=== PATIENT | male | born 1985 | race Caucasian/White ===

== ENCOUNTER 2024-03-19 16:07 | Emergency (ER) | payer OTHER, BC ==
[~2024-03-19] VITALS: Ht 170.2 cm; Wt 90.7 kg
[2024-03-19 16:08] VITALS: BP 183/95; PULSE 120; RESP 18; TEMP 97.3; O2SAT 97
[2024-03-19] MEDS: ACETAMINOPHEN EXTRA STRENGTH 500 MG TAB PO ONE (16:27)
[2024-03-19] MEDS ORDERED: IBUP-2213 PO (16:43)
[2024-03-19 17:00] VITALS: BP 145/82; PULSE 100; RESP 14; TEMP 98; O2SAT 99
== END 2024-03-19 20:03 | disposition home or self-care (01) ==
LOC: MED 16:07
DX: S61.512A Laceration without foreign body of left wrist, initial encounter (principal); S61.511A Laceration without foreign body of right wrist, initial encounter; S80.01XA Contusion of right knee, initial encounter; I10 Essential (primary) hypertension; Z79.1 Long term (current) use of non-steroidal anti-inflammatories (NSAID); W22.8XXA Striking against or struck by other objects, initial encounter; Y93.89 Activity, other specified; Y92.89 Other specified places as the place of occurrence of the external cause; Y99.8 Other external cause status
CPT/HCPCS: 73562; 99283; Q0092